=== PATIENT | female | born 1960 | race Caucasian/White ===

== ENCOUNTER → 2018-03-17 | Outpatient (CLI) | payer BC ==
--- NOTE | 2018-03-17 20:55 | CONS ---
CONSULTATION Dr. Cummins is the primary care physician. This is a 57-year-old female patient. The daughter in law of Dr. Kline who is coming in for sleep apnea evaluation. The patient was diagnosed having obstructive sleep apnea through a Sleep Center in [place] and since she moved she has not established herself with any sleep doctor and for that reason, she presented to me. The original polysomnogram will be faxed to me at a later stage. The patient reports that she is benefitting from the CPAP therapy. I checked her CPAP machine and this is set at a pressure of 8 cm of water. This is a Resmet AutoSet unit and she is using an AirFit P 10 extra small nose pillow. She has at times problems utilizing the nasal pillows knowing that the patient has nasal septal deviation. She has been suffering from chronic sinus allergies and she is currently using Flonase. She is also contemplating on using a full-face mask. Otherwise she is not snoring while on CPAP unit. She is benefitting from the treatment. Her sleep quality is improved and she is waking up refreshed and alert during the day. [place] score is down to 3. Her going to bedtime at 10:30 p.m. and she wakes up at 6:30 am in the morning. No reported insomnia. No sleep paralysis or no cataplexy. No other complaints otherwise. PAST MEDICAL HISTORY: 1. Obstructive sleep apnea. 2. Deviated nasal septum. 3. Allergic rhinitis. 4. Acid reflux. 5. Osteoporosis. PAST SURGICAL HISTORY: Past surgical history is negative. DRUG ALLERGIES: Not known. OUTPATIENT MEDICATION LIST: Includes calcium with vitamin D 1 tablet twice a day. Vitamin and biotin, copper, omeprazole 20 daily, Flonase nasal spray. SOCIAL HISTORY: The patient is a nonsmoker. No history of alcohol. No history of drugs. FAMILY HISTORY: Negative for sleep apnea. REVIEW OF SYSTEMS: 12-point review of system was done. Positive findings are mentioned above in the history of present illness. PHYSICAL EXAMINATION: BP is 144/91, pulse 71, respirations 16, temperature 98.1, saturation 99% on room air. Weight is 146, height is 5 feet 5 inches, neck is 12 3/4 of an inch. [place] score is 3. BMI 23.9, BP is 144/91 on the left upper extremity and 155/101 on the right upper extremity. General appearance is calm, comfortable. Head is atraumatic, normocephalic. NECK: Supple. There is no JVD. No goiter or neck masses. LUNGS: Clear to auscultation. HEART: Sounds are regular. Normal S1, S2. No S3. No murmurs. ABDOMEN: Soft, nontender. No organomegaly. EXTREMITIES: No edema. No cyanosis or clubbing. IMPRESSION: 1. Obstructive sleep apnea currently on CPAP pressure of 8 cm of water. Utilizing AirFit P10 extra-small nose pillow. 2. Hypersomnia improved. 3. Acid reflux. 4. Osteoporosis. 5. Deviated nasal septum, along with history of allergic rhinitis and seasonal hay fever. PLAN: I checked the compliance data and the patient's numbers look great. The patient has been utilizing the CPAP on an average of 5.3 hours of CPAP every night. Her AHI while on treatment is down to 0.6 and her leak factor is 11 L/minute. Her CPAP use for more than 4 hours is 23/30. I recommend the following changes: I recommend changing her to an APAP with a minimum pressure of 4, maximum pressure of 8 and this will allow the patient to utilize total pressure if needed. I will add an EPR of 3. I dropped the down to 3 and dropped the temperature of the tubing down to 72 degrees Fahrenheit. We will continue Flonase and do it twice a day and use antihistamines of choice regarding her nasal congestion and sinus drainage. I do not think there is need for a full-face mask for now. We will continue with nasal pillow and we will revaluate this patient in a year's time or earlier if needed. MMODL / IJN: [id number] /
== END | disposition home or self-care (01) ==
LOC: SLEEP 15:25
PROVIDERS: ATTEND Internal Medicine Critical Care Medicine
DX: G47.33 Obstructive sleep apnea (adult) (pediatric) (principal); K21.9 Gastro-esophageal reflux disease without esophagitis; M81.0 Age-related osteoporosis without current pathological fracture; J34.2 Deviated nasal septum; J30.9 Allergic rhinitis, unspecified; R50.9 Fever, unspecified; Z99.89 Dependence on other enabling machines and devices; Z79.899 Other long term (current) drug therapy
CPT/HCPCS: 99211

== ENCOUNTER → 2018-04-15 | Outpatient (CLI) | payer BC ==
--- NOTE | 2018-04-15 16:17 | BD ---
EXAMINATION TYPE: Axial Bone Density DATE OF EXAM: 04/15/2018 COMPARISON: NONE, history of possible study in [place] CLINICAL HISTORY: Osteoporosis Height: 66 Weight: 143.7 FRAX RISK QUESTIONS: Alcohol (3 or more units per day): no Family History (Parent hip fracture): yes Glucocorticoids (More than 3mos): no (Ex: prednisone, prednisolone, methylprednisolone, dexamethasone, and hydrocortisone). History of Fracture in Adulthood: yes Secondary Osteoporosis: 1. Type 1 Diabetes: no 2. Hyperthyroidism: no 3. Menopause before 45: no 4. Malnutrition: no 5. Chronic liver disease: no Rheumatoid Arthritis: no Current Tobacco Use: no RISK FACTORS HISTORY OF: History of Wrist Fracture: yes right When: as a child Family History of Osteoporosis: no Active: yes Diet low in dairy products/other sources of calcium: no Postmenopausal woman: age 49 Lost more than 2 inches in height since high school: no MEDICATIONS: nasal spray, omeprazole, blood pressure med Additional History: EXAM MEASUREMENTS: Bone mineral densitometry was performed using the Tripvisto System. Bone mineral density as measured about the Lumbar spine is: ----- L1-L4(G/cm2): 0.771 T Score Values are as follows: ----- L2: -3.5 ----- L3: -3.6 ----- L4: -3.5 ----- L1-L4: -3.4 Bone mineral density : baseline Bone mineral density about the R hip (g/cm2): 0.850 Bone mineral density about the L hip (g/cm2): 0.841 T Score values are as follows: -----R Neck: -1.4 -----L Neck: -1.4 -----R Total: -1.4 -----L Total: -1.7 Bone mineral density : baseline IMPRESSION: Osteoporosis (T Score less than -2.5). There is increased fracture risk and therapy is usually indicated based on age. Re-Screen 1-2 years. NOTE: T-SCORE=SD OF THE YOUNG ADULT MEAN.
--- NOTE | 2018-04-29 14:13 | MM ---
Reason for exam: screening (asymptomatic). Last mammogram was performed 1 year ago. History: Patient is postmenopausal, history of other cancer, and had first child at age 31. Physical Findings: A clinical breast exam by your physician is recommended on an annual basis and results should be correlated with mammographic findings. MG Screening Mammo w CAD Bilateral CC and MLO view(s) were taken. Prior study comparison: April 14, 2017, mammogram, performed at [place], [place]. August 14, 2015, mammogram, performed at [place], [place]. The breast tissue is heterogeneously dense. This may lower the sensitivity of mammography. There is no discrete abnormality. ASSESSMENT: Negative, BI-RAD 1 RECOMMENDATION: Routine screening mammogram of both breasts in 1 year.
== END | disposition home or self-care (01) ==
LOC: RADMAMWWP 07:36
PROVIDERS: ATTEND Internal Medicine
DX: Z12.31 Encounter for screening mammogram for malignant neoplasm of breast (principal); M81.0 Age-related osteoporosis without current pathological fracture
CPT/HCPCS: 77067; 77080

== ENCOUNTER → 2019-04-13 | Outpatient (CLI) | payer BC ==
--- NOTE | 2019-04-13 19:56 | PN ---
PROGRESS NOTE This is a 58-year-old female patient coming in for an annual check up regarding obstructive sleep apnea. The patient's original sleep study was done in the sleep center in [place]. Her last evaluation was done in February of 2018 and over the past 1 year the patient has been doing extremely well. No significant weight gain or weight loss. Weight is 141, which is a few pounds less. She is on hydrochlorothiazide for tighter blood pressure control. On today's evaluation, I checked her CPAP unit. Her CPAP is set at an APAP mode pressure 4, maximum pressure of 8. She has been averaging around 5.1 hours of CPAP use per night. CPAP use for more than 4 hours is 27/30 and AHI is down to 2.4. She is doing well. No specific complaints. She is using AirFit P10 nose pillows and she is interested in changing her medications to another type of mask. I suggested a DreamWear under the nose. She continues to have issues with nasal septal deviation. She is nose breathing. No sinus infections. Nose plugging. No drainage. No headaches. No other complaints otherwise. She is fully alert and awake during the day and she is not falling asleep while driving. Nor while performing day-to-day activities. REVIEW OF SYSTEMS: 12 point review of system was done. The patient has septal deviation, and she is able to breathe through her nose without any major difficulties. No sinus infections. No headaches. No postnasal drainage. No allergic rhinitis. No sore throat, hoarseness, cough, sputum production, chest tightness, wheezing, palpitation, no heartburn, nausea, vomiting, diarrhea or abdominal pain, dysuria, hematuria, frequency, urgency, falls, altered mentation, headache or any other anxiety or depression or any other issues with the skin or wounds. She has occasional acid reflux which is well treated. She has also osteoporosis. PHYSICAL EXAMINATION: BP is 160/94, pulse 92, respirations 14. Temperature 98.3. Saturation 98% on room air. Height is 5 feet, 5 inches, weight is 141, Hay[place] score is a 3, BMI 23.1. General appearance: Calm, comfortable. Head is atraumatic, normocephalic. NECK: Supple. No JVD. No goiter or neck masses. The patient has deviated nasal septum to the right. LUNGS: Clear to auscultation. HEART: Heart sounds are regular rate and rhythm. Normal S1, S2. No S3. No S4, no murmurs. ABDOMEN: Soft, nontender. EXTREMITIES: No edema. No cyanosis or clubbing. NEUROLOGIC: Alert and oriented x3. No focal neurological deficits. PSYCHIATRIC: Negative for anxiety or depression. IMPRESSION: 1. Obstructive sleep apnea currently on CPAP with an APAP mode, minimum pressure of 4, maximum pressure of 8 and the patient is extremely compliant and has demonstrated good clinical response. 2. Hypersomnia, improved, Hay[place] score is down to 3. 3. Deviated nasal septum to the right. 4. Acid reflux. 5. Osteoporosis. 6. Hypertension, currently on hydrochlorothiazide. PLAN: 1. I offered the patient DreamWear under the nose. 2. Continue APAP as the pressure setting is quite successful at this point in time. 3. Encourage weight loss. 4. Implement good sleep hygiene measures. 5. See me back in a year's time, earlier if needed. SUSSYL / IJN: [id number] /
== END | disposition home or self-care (01) ==
LOC: SLEEP 15:57
PROVIDERS: ATTEND Internal Medicine Critical Care Medicine
DX: G47.33 Obstructive sleep apnea (adult) (pediatric) (principal); J34.2 Deviated nasal septum; K21.9 Gastro-esophageal reflux disease without esophagitis; M81.0 Age-related osteoporosis without current pathological fracture; I10 Essential (primary) hypertension; Z99.89 Dependence on other enabling machines and devices; Z79.899 Other long term (current) drug therapy

== ENCOUNTER → 2019-05-04 | Outpatient (CLI) | payer BC ==
--- NOTE | 2019-05-05 14:23 | MM ---
Reason for exam: screening (asymptomatic). Last mammogram was performed 1 year and 1 month ago. History: Patient is postmenopausal, history of other cancer, and had first child at age 31. Physical Findings: A clinical breast exam by your physician is recommended on an annual basis and results should be correlated with mammographic findings. MG Screening Mammo w CAD Bilateral CC and MLO view(s) were taken. Prior study comparison: April 15, 2018, bilateral MG screening mammo w CAD. April 14, 2017, mammogram, performed at [place], [place]. The breast tissue is heterogeneously dense. This may lower the sensitivity of mammography. No suspicious abnormality. No significant changes when compared with prior studies. ASSESSMENT: Negative, BI-RAD 1 RECOMMENDATION: Routine screening mammogram of both breasts in 1 year.
== END | disposition home or self-care (01) ==
LOC: RADMAMWWP 07:18
PROVIDERS: ATTEND Internal Medicine
DX: Z12.31 Encounter for screening mammogram for malignant neoplasm of breast (principal)
CPT/HCPCS: 77067

== ENCOUNTER → 2019-05-07 | Outpatient (CLI) | payer BC ==
[~2019-05-07] MED LIST: SODIUM CHLORIDE 0.9% 500 ML 500 ML in EMPTY BAG 1 BAG IV PRN; ZOLEDRONIC ACID 5 MG in SODIUM CHLORIDE 0.9% 100 ML IV NR
[2019-05-07 10:25] VITALS: BP 170/94; PULSE 58; RESP 16; TEMP 97.8
== END ==
LOC: PROCWHC3 09:30
PROVIDERS: ATTEND Internal Medicine
DX: M81.0 Age-related osteoporosis without current pathological fracture (principal)
CPT/HCPCS: 96365; J3489

== ENCOUNTER 2019-12-27 15:12 | Emergency (ER) | payer BC ==
[2019-12-27] MEDS ORDERED: SODIUM CHLORIDE 0.9% 1,000 ML IV STA (15:20)
--- NOTE | 2019-12-27 15:38 | ED ---
General Adult HPI - General Chief complaint: Chest Pain Stated complaint: Shortness of Breath Time Seen by Provider: 12/27/19 15:20 Source: patient Mode of arrival: ambulatory Limitations: no limitations - History of Present Illness Initial comments: Dictation was produced using [employer] dictation software. please excuse any grammatical, word or spelling errors. This patient was cared for during a federal and state declared state of emergency secondary to Covid 19 Chief Complaint: 59-year-old female past medical history of GERD, hypertension presents with concern for Covid 19. History of Present Illness:-year-old female she is here today because she is concerned of Covid 19. Patient was seen at urgent care where she was redirected and sent to the emergency department. Patient states she's been having headache and chest pain for the last 3 days. Vision is really worried because she has a daughter who is and [place]. Patient has any overt exposure to sick individuals. She has no known contact with anyone with known Covid 19 infection. Patient states she does have some chest pain that sharp to the anterior chest worse with deep inspiration. States that she does have some coughing that is dry. Patient denies any history of coronary artery disease. She denies any history of lung disease. The ROS documented in this emergency department record has been reviewed and confirmed by me. Those systems with pertinent positive or negative responses have been documented in the HPI. All other systems are other negative and/or noncontributory. PHYSICAL EXAM: General Impression: Alert and oriented x3, not in acute distress HEENT: Normocephalic atraumatic, extra-ocular movements intact, pupils equal and reactive to light bilaterally, mucous membranes moist. Cardiovascular: Heart regular rate and rhythm, S1&S2 audible, no murmurs, rubs or gallops Chest: We will complete full sentences, no retractions, no tachypnea or respiratory distress Abdomen: Bowel sounds present, abdomen soft, non-tender, non-distended, no organomegaly Musculoskeletal: Pulses present and equal in all extremities, no peripheral edema Motor: no focal deficits noted Neurological: CN II-XII grossly intact, no focal motor or sensory deficits noted Skin: Intact with no visualized rashes Psych: Normal affect and mood ED course: 59-year-old female presents with concerns of Covid 19. Vital signs upon arrival are within acceptable limits. Patient is afebrile. She is not hypoxic. She is not requiring any supplemental oxygen. Patient's well- appearing. Patient's chest pain is atypical.Laboratory evaluation obtained. CB C unremarkable. Sodium is mild hyper bone trimming of 1:30 with potassium 3.2. Rest metabolic panel is unremarkable. Troponin is negative. C-reactive protein is negative. Patient's symptoms of headache likely secondary to mild hyponatremia. Patient told to add some sodium chloride to her food and to hydrate. She is advised to follow-up with primary care physician upon discharge. Patient clinically stable. She was tested for Covid 19 and told to follow-up with her results. Patient instructed to quarantine for 14 days. She is given outpatient resources for coronavirus. EKG interpretation: Ventricular rate 60, normal sinus rhythm, AK interval 144, QRS 86, QTC 423. No AK prolongation, no QTC prolongation, no ST or T-wave changes noted. Overall, this EKG is unremarkable - Related Data Home Medications Medication Instructions Recorded Confirmed Calcium Citrate/Vitamin D3 2 tab PO DAILY 05/07/19 05/07/19 [Calcium Cit 315-Vit D3 250mg Tab] Diclofenac Sodium Gel [Voltaren 1 appful TOPICAL DIRECTED 05/07/19 05/07/19 Gel] Fluticasone Nasal [place] [Flonase 50 mcg NASAL DAILY 05/07/19 05/07/19 Nasal [place]] Hydrochlorothiazide 50 mg PO DAILY 05/07/19 05/07/19 Multivit No.40/Iron/Folat1/Dha 2 tab PO DAILY 05/07/19 05/07/19 [Prenate Essential Softgel] Omeprazole 20 mg PO DAILY 05/07/19 05/07/19 Turmeric Root Extract [Turmeric] 500 mg PO DAILY 05/07/19 05/07/19 Allergies Allergy/AdvReac Type Severity Reaction Status Date / Time No Known Allergies Allergy Verified 12/27/19 15:18 Review of Systems ROS Statement: Those systems with pertinent positive or pertinent negative responses have been documented in the HPI. ROS Other: All systems not noted in ROS Statement are negative. Past Medical History Past Medical History: GERD/Reflux, Hypertension, Osteoarthritis (OA), Sleep Apnea/CPAP/BIPAP Additional Past Medical History / Comment(s): OSEOPOROSIS. History of Any Multi-Drug Resistant Organisms: None Reported Additional Past Surgical History / Comment(s): VEIN STRIPPING FOR VARICOSE VEINS. Past Anesthesia/Blood Transfusion Reactions: No Reported Reaction Past Psychological History: No Psychological Hx Reported Smoking Status: Never smoker Past Alcohol Use History: Occasional Past Drug Use History: None Reported General Exam Limitations: no limitations Course Vital Signs 12/27/19 15:15 Temperature 97.5 F L Pulse Rate 68 Respiratory 20 Rate Blood Pressure 174/103 O2 Sat by Pulse 99 Oximetry Medical Decision Making - Lab Data Result diagrams: 12/27/19 15:35 12/27/19 15:35 Lab Results 12/27/19 12/27/19 12/27/19 Range/Units 15:35 15:35 15:35 WBC 4.3 (3.8-10.6) k/uL RBC 4.79 (3.80-5.40) m/uL Hgb 14.7 (11.4-16.0) gm/dL Hct 43.4 (34.0-46.0) % MCV 90.6 (80.0-100.0) fL MCH 30.8 (25.0-35.0) pg MCHC 34.0 (31.0-37.0) g/dL RDW 12.1 (11.5-15.5) % Plt Count 357 (150-450) k/uL Neutrophils % 64 % Lymphocytes % 25 % Monocytes % 6 % Eosinophils % 2 % Basophils % 0 % Neutrophils # 2.8 (1.3-7.7) k/uL Lymphocytes # 1.1 (1.0-4.8) k/uL Monocytes # 0.3 (0-1.0) k/uL Eosinophils # 0.1 (0-0.7) k/uL Basophils # 0.0 (0-0.2) k/uL Sodium 130 L (137-145) mmol/L Potassium 3.2 L (3.5-5.1) mmol/L Chloride 95 L (98-107) mmol/L Carbon Dioxide 28 (22-30) mmol/L Anion Gap 7 mmol/L BUN 14 (7-17) mg/dL Creatinine 0.58 (0.52-1.04) mg/dL Est GFR (CKD-EPI)AfAm >90 (>60 ml/min/1.73 sqM) Est GFR (CKD-EPI)NonAf >90 (>60 ml/min/1.73 sqM) Glucose 125 H (74-99) mg/dL Calcium 10.4 H (8.4-10.2) mg/dL Magnesium 1.9 (1.6-2.3) mg/dL Total Bilirubin 0.3 (0.2-1.3) mg/dL AST 25 (14-36) U/L ALT 14 (4-34) U/L Alkaline Phosphatase 68 (38-126) U/L Troponin I <0.012 (0.000-0.034) ng/mL C-Reactive Protein <5.0 (<10.0) mg/L Total Protein 7.1 (6.3-8.2) g/dL Albumin 4.2 (3.5-5.0) g/dL Disposition Clinical Impression: URI (upper respiratory infection) Disposition: HOME SELF-CARE Condition: Good Instructions (If sedation given, give patient instructions): Chest Pain (ED), Upper Respiratory Infection (ED) Additional Instructions: Today you were evaluated for symptoms consistent with upper respiratory infection. There is concern that perhaps your symptomatology may represent Covid 19. Your are stable for discharge, however it is instructed to to seek immediate medical attention especially if you develop worsening symptoms especially respiratory distress. In the meantime please remain in quarantine for 14 days. For any other questions please contact Madhuri for here in emergency department or [facility] at [phone] Please call Madhuri for him for follow-up of Covid 19 results Is patient prescribed a controlled substance at d/c from ED?: No Referrals: Carter Cummins MD [Primary Care Provider] - 1-2 days Time of Disposition: 16:41
[2019-12-27 15:55] LABS: Basophils % (A) 0 %; Eosinophils # (A) 0.1 k/uL (0-0.7); Eosinophils % (A) 2 %; HCT 43.4 % (34.0-46.0); HGB 14.7 gm/dL (11.4-16.0); Lymphocytes # (A) 1.1 k/uL (1.0-4.8); Lymphocytes % (A) 25 %; MCH 30.8 pg (25.0-35.0); MCV 90.6 fL (80.0-100.0); Mean Platelet Volume 6.9; Monocytes # (A) 0.3 k/uL (0-1.0); Monocytes % (A) 6 %; Neutrophils # (A) 2.8 k/uL (1.3-7.7); Neutrophils % (A) 64 %; Platelet Count 357 k/uL (150-450); RBC 4.79 m/uL (3.80-5.40); RDW 12.1 % (11.5-15.5); WBC 4.3 k/uL (3.8-10.6)
--- NOTE | 2019-12-27 15:55 | XR ---
EXAMINATION TYPE: XR chest 1V portable DATE OF EXAM: 12/27/2019 Comparison: None Clinical History: 59-year-old female chest pain Findings: Dextroconvex scoliosis. Heart normal size. Aorta and pulmonary vasculature within normal limits. No c onsolidation or pleural effusion. Mild hyperinflation. Impression: Mild hyperinflation may relate to depth of inspiration or underlying emphysema. Clinically correlate . Dextroconvex scoliosis. Otherwise, no acute process seen.
[2019-12-27 16:04] LABS: ALT 14 U/L (4-34); AST 25 U/L (14-36); African American GFR (CKD) >90 (>60 ml/min/1.73 sqM); Albumin 4.2 g/dL (3.5-5.0); Alkaline Phosphatase 68 U/L (38-126); Anion Gap 7 mmol/L; Blood Urea Nitrogen 14 mg/dL (7-17); C Reactive Protein <5.0 mg/L (<10.0); Calcium 10.4 mg/dL (8.4-10.2); Carbon Dioxide 28 mmol/L (22-30); Chloride 95 mmol/L (98-107); Glucose 125 mg/dL (74-99); Magnesium 1.9 mg/dL (1.6-2.3); Non-African American GFR(CKD) >90 (>60 ml/min/1.73 sqM); Potassium 3.2 mmol/L (3.5-5.1); Sodium 130 mmol/L (137-145); Total Bilirubin 0.3 mg/dL (0.2-1.3); Total Protein 7.1 g/dL (6.3-8.2)
[2019-12-27] MEDS ORDERED: POTASSIUM CHLORIDE ER 20 MEQ TAB.ER PO STA (16:33)
[2019-12-27 17:12] VITALS: BP 147/89; PULSE 72; RESP 18; TEMP 98
== END 2019-12-27 17:09 | disposition home or self-care (01) ==
LOC: EC 15:12
DX: J06.9 Acute upper respiratory infection, unspecified (principal); I10 Essential (primary) hypertension; G47.30 Sleep apnea, unspecified; Z20.828 Contact with and (suspected) exposure to other viral communicable diseases; Z53.8 Procedure and treatment not carried out for other reasons; Z79.51 Long term (current) use of inhaled steroids; Z79.899 Other long term (current) drug therapy; Z99.89 Dependence on other enabling machines and devices
CPT/HCPCS: 36415; 71045; 80053; 83735; 84484; 85025; 86140; 87635; 93005; 99285

== ENCOUNTER → 2020-06-01 | Outpatient (CLI) | payer BC ==
[2020-06-01 13:40] VITALS: BP 130/89; PULSE 88; RESP 16; TEMP 98.4
== END | disposition home or self-care (01) ==
LOC: PROCWHC3 13:26
PROVIDERS: ATTEND Internal Medicine
DX: M81.0 Age-related osteoporosis without current pathological fracture (principal)
CPT/HCPCS: 96365; J3489

== ENCOUNTER → 2020-07-28 | Outpatient (CLI) | payer BC ==
--- NOTE | 2020-07-28 15:48 | BD ---
EXAMINATION TYPE: Axial Bone Density DATE OF EXAM: 07/28/2020 COMPARISON: NONE CLINICAL HISTORY: Height: 65 Weight: 144.7 FRAX RISK QUESTIONS: Alcohol (3 or more units per day): no Family History (Parent hip fracture): yes Glucocorticoids (More than 3mos): no (Ex: prednisone, prednisolone, methylprednisolone, dexamethasone, and hydrocortisone). History of Fracture in Adulthood: yes Secondary Osteoporosis: 1. Type 1 Diabetes: no 2. Hyperthyroidism: no 3. Menopause before 45: no 4. Malnutrition: no 5. Chronic liver disease: no Rheumatoid Arthritis: no Current Tobacco Use: no RISK FACTORS HISTORY OF: Family History of Osteoporosis: no Active: yes Diet low in dairy products/other sources of calcium: no Postmenopausal woman: age 49 Lost more than 2 inches in height since high school: no MEDICATIONS: lisinopril, omeprazole, hydrochlorazide Osteoporosis Medications: reclast How Lon years Additional History: EXAM MEASUREMENTS: Bone mineral densitometry was performed using the IVDesk System. Bone mineral density as measured about the Lumbar spine is: ----- L1-L4(G/cm2): 0.828 T Score Values are as follows: ----- L2: -3.0 ----- L3: -3.2 ----- L4: -3.2 ----- L1-L4: -2.9 Bone mineral density has: increased 6.2 % since study of: 04.15.2018 Bone mineral density about the R hip (g/cm2): 0.890 Bone mineral density about the L hip (g/cm2): 0.889 T Score values are as follows: -----R Neck: -1.1 -----L Neck: -1.1 -----R Total: -1.1 -----L Total: -1.1 Bone mineral density has: increased 7.3 % since study of: 04.15.2018 IMPRESSION: Osteoporosis (T Score less than -2.5). There is increased fracture risk and therapy is usually indicated based on age. Re-Screen 1-2 years. NOTE: T-SCORE=SD OF THE YOUNG ADULT MEAN.
== END | disposition home or self-care (01) ==
LOC: RADBDWWP 07:16
PROVIDERS: ATTEND Internal Medicine
DX: M81.0 Age-related osteoporosis without current pathological fracture (principal)
CPT/HCPCS: 77080

== ENCOUNTER → 2020-10-20 | Outpatient (CLI) | payer BC ==
--- NOTE | 2020-10-20 08:57 | CT ---
EXAMINATION TYPE: CT soft tissue neck w con DATE OF EXAM: 10/20/2020 HISTORY: pain with swallowing lt side of neck x 3 months/hoarse voice COMPARISON: NONE CT DLP: 291 mGycm. Automated Exposure Control for Dose Reduction was Utilized. TECHNIQUE: CT scan of the neck is performed with IV Contrast, patient injected with 100 mL of Isovue 300, axial images are obtained, coronal and sagittal reformatted images are reviewed. FINDINGS: Airway: No gross abnormality seen. Parotid/submandibular glands: No gross abnormality seen. Carotid/Vascular Structures: No significant abnormality. Osseous Structures: Grade 1 anterolisthesis C3 on C4 and grade 1 retrolisthesis C4 on C5. Moderate to severe disc space narrowing C4-C5 level. Underlying levoconvex scoliosis centered in the upper thora cic spine Other: Nasal septum is deviated to left of midline. No suspicious greater than 1 cm neck adenopathy. Paranasal sinuses are clear. Parapharyngeal fat spac es are maintained bilaterally. IMPRESSION: No suspicious mass or adenopathy.
== END | disposition home or self-care (01) ==
LOC: RADCTMAIN 07:21
PROVIDERS: ATTEND Otolaryngology
DX: J02.9 Acute pharyngitis, unspecified (principal)
CPT/HCPCS: 70491; Q9967

== ENCOUNTER → 2021-02-01 | Outpatient (CLI) | payer BC ==
--- NOTE | 2021-02-02 15:04 | MM ---
Reason for exam: screening (asymptomatic). Last mammogram was performed 1 year and 9 months ago. History: Patient is postmenopausal, history of other cancer, and had first child at age 31. Physical Findings: A clinical breast exam by your physician is recommended on an annual basis and results should be correlated with mammographic findings. MG Screening Mammo w CAD Bilateral CC and MLO view(s) were taken. Prior study comparison: May 04, 2019, bilateral MG screening mammo w CAD. April 15, 2018, bilateral MG screening mammo w CAD. There are scattered fibroglandular densities. No significant changes when compared with prior studies. ASSESSMENT: Negative, BI-RAD 1 RECOMMENDATION: Routine screening mammogram of both breasts in 1 year.
== END | disposition home or self-care (01) ==
LOC: RADMAMWWP 16:55
PROVIDERS: ATTEND Internal Medicine
DX: Z12.31 Encounter for screening mammogram for malignant neoplasm of breast (principal); Z78.0 Asymptomatic menopausal state
CPT/HCPCS: 77067

== ENCOUNTER → 2021-02-13 | Outpatient (CLI) | payer BC ==
--- NOTE | 2021-02-13 13:44 | MR ---
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 Neck, mid back, and low back pain. Family hist ory of chiari malformation. TECHNIQUE: Multiplanar, multisequence images of the brain and brainstem is performed without and with IV contras t, utilizing 6.5 mL intravenous Gadavist . FINDINGS: Diffusion weighted images demonstrate no evidence of a recent infarct or other diffusion ab normality. There is no extra-axial fluid collection. There are some scattered hyperintensities with in the deep white matter on inversion recovery T2-weighted sequences, approximately 3-5 lesions, larg est in the right frontal lobe measures approximately 4 mm. The ventricular system and cisternal space s are normal in size and appearance. The brain volume is age appropriate. Midline structures demonstrate minimal inferior cerebellar tonsillar ectopia. The craniocervical kamilah ction appears within normal limits. Post contrast images demonstrate no abnormal enhancement. The du ral venous sinuses appear patent. The visualized sinuses are markable for minimal mucosal disease in the ethmoid air cells, maxillary sinus and the globes are intact. 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
== END | disposition home or self-care (01) ==
LOC: RADMRIMAIN 11:36
PROVIDERS: ATTEND Orthopaedic Surgery Orthopaedic Surgery of the Spine
DX: Q04.8 Other specified congenital malformations of brain (principal)
CPT/HCPCS: 70553; A9585

== ENCOUNTER → 2022-02-21 | Outpatient (CLI) | payer BC, OTHER ==
--- NOTE | 2022-02-21 14:01 | MM ---
Reason for Exam: Screening (asymptomatic). Last mammogram was performed 1 year(s) and 1 month(s) ago. Patient History: Menarche at age 11. First Full-Term at age 31. Late child-bearing (after 30). Postmenopausal. Other cancer. Risk Values: Britta 5 year model risk: 2.1%. NCI Lifetime model risk: 9.4%. Prior Study Comparison: 04/15/2018 Bilateral Screening Mammogram, [facility]. 05/04/2019 Bilateral Screening Mammogram, [facility]. 02/01/2021 Bilateral Screening Mammogram, [facility]. Tissue Density: There are scattered fibroglandular densities. Findings: Analyzed By CAD. There is no suspicious group of microcalcifications or new suspicious mass in either breast. Overall Assessment: Negative, BI-RAD 1 Management: Screening Mammogram of both breasts in 1 year. A clinical breast exam by your physician is recommended on an annual basis and results should be correlated with mammographic findings. Electronically signed and approved by: Hector Michele M.D.
== END | disposition home or self-care (01) ==
LOC: RADMAMWWP 10:55
PROVIDERS: ATTEND Internal Medicine
DX: Z12.31 Encounter for screening mammogram for malignant neoplasm of breast (principal); Z78.0 Asymptomatic menopausal state
CPT/HCPCS: 77067

== ENCOUNTER → 2022-08-13 | Outpatient (CLI) | payer OTHER ==
--- NOTE | 2022-08-13 10:39 | BD ---
EXAMINATION TYPE: Axial Bone Density DATE OF EXAM: 08/13/2022 COMPARISON: 07/28/2020 CLINICAL HISTORY: 61 years year old Female. ICD-10 CODE: M81.0 age related osteoporosis Height: 5FT 5INCHES Weight: 144.2 FRAX RISK QUESTIONS: Alcohol (3 or more units per day): NO Family History (Parent hip fracture): YES, FATHER Glucocorticoids (More than 3mos): NO (Ex: prednisone, prednisolone, methylprednisolone, dexamethasone, and hydrocortisone). History of Fracture in Adulthood: YES, RIGHT KNEE Secondary Osteoporosis: 1. Type 1 Diabetes: NO 2. Hyperthyroidism: NO 3. Menopause before 45: NO 4. Malnutrition: NO 5. Chronic liver disease: NO Rheumatoid Arthritis: NO Current Tobacco Use: NO RISK FACTORS HISTORY OF: Hip Fracture (Right/Left): NO Spine Fracture: NO History of Wrist Fracture: NO Surgery to Spine/Hip(right/left)/Wrist (right/left): NO Family History of Osteoporosis: NO Active: YES Diet low in dairy products/other sources of calcium: NO Postmenopausal woman: YES Take estrogen and/or progesterone medications: NO Lost more than 2 inches in height since high school: NO Frequent falls: NO Poor Health: GOOD Hyperparathyroidism: NO Adrenal Insufficiency: NO MEDICATIONS: Prednisone or other steroids: NO Thyroid Medications: NO Osteoporosis Medications: YES, RECLAST INFUSION, 1PER YEAR (PATIENT HAS HAD 2, SHE BELIEVES THAT BOTH WERE POSSIBLY PRIOR TO HER BONE DENSITY 07/28/2020) Additional Medications: VITAMIN D, VITAMIN C, LISINOPRIL, OMEPRAZOLE, LIPITOR, TURMERIC, COLLAGEN EXAM MEASUREMENTS: Bone mineral densitometry was performed using the [employer] System. Bone mineral density as measured about the Lumbar spine is: ----- L1-L4(G/cm2): 0.847 T Score Values are as follows: ----- L1: -2.8 ----- L2: -2.8 ----- L3: -2.8 ----- L4: -2.8 ----- L1-L4: -2.8 Bone mineral density has: INCREASED 5.0% since study of: 07/28/2020 Bone mineral density about the R hip (g/cm2): 0.863 Bone mineral density about the L hip (g/cm2): 0.907 T Score values are as follows: -----R Neck: -0.9 -----L Neck: -1.3 -----R Total: -1.1 -----L Total: -1.0 Bone mineral density has: INCREASED 0.2% since study of: 07/28/2020 FRAX%s: The graph provided illustrates a 12.2% chance for a major osteoporotic fx and a 1.0% chance f or the hips probability for fx in 10 years time. IMPRESSION: Osteoporosis (T Score less than -2.5). There is increased fracture risk and therapy is usually indicated based on age. Re-Screen 1-2 years. NOTE: T-SCORE=SD OF THE YOUNG ADULT MEAN.
== END | disposition home or self-care (01) ==
LOC: RADBDWWP 09:12
PROVIDERS: ATTEND Internal Medicine
DX: M81.0 Age-related osteoporosis without current pathological fracture (principal)
CPT/HCPCS: 77080

== ENCOUNTER 2022-09-17 16:03 | Emergency (ER) | payer OTHER ==
[2022-09-17 16:13] VITALS: TEMP 97.8
--- NOTE | 2022-09-17 16:39 | ED ---
General Adult HPI <Jose Maria Collado - Last Filed: 09/17/22 18:13> - General Source: patient, EMS, RN notes reviewed Mode of arrival: EMS Limitations: physical limitation <Audrey Soares - Last Filed: 09/17/22 23:51> - General Chief complaint: Fall Stated complaint: fall, ankle injury Time Seen by Provider: 09/17/22 16:11 - History of Present Illness Initial comments: 62 year old caucasaian with no significant PMH presents to the emergency department with a chief complaint of L ankle pain. She reports she was [place] when her dog ran into her and she spun around and fell on her L ankle. She reports hearing a loud "pop." She was given 100mg of fentanyl en route via EMS. She denies numbness or tingling. (Audrey Soares) - Related Data Home Medications Medication Instructions Recorded Confirmed Fluticasone Nasal [place] [Flonase 1 spr EA NOSTRIL DAILY PRN 05/07/19 09/17/22 Nasal [place]] Turmeric Root Extract [Turmeric] 1,000 mg PO DAILY 05/07/19 09/17/22 Ascorbic Acid [Vitamin C] 1,000 mg PO DAILY 09/17/22 09/17/22 Atorvastatin Calcium [Lipitor] 40 mg PO DAILY 09/17/22 09/17/22 Biotin 5 mg PO DAILY 09/17/22 09/17/22 Chlorthalidone 50 mg PO DAILY 09/17/22 09/17/22 Cranberry W/ Vitamin C 1 tab PO HS 09/17/22 09/17/22 Multivit-Min/Folic Acid/Biotin 133.3 mcg PO DAILY 09/17/22 09/17/22 [Hair, Skin and Nails Softgel] Omeprazole 20 mg PO DAILY 09/17/22 09/17/22 Vitamin D3(Unknown) 1 tab PO HS 09/17/22 09/17/22 lisinopriL [Zestril] 5 mg PO DAILY 09/17/22 09/17/22 Allergies Allergy/AdvReac Type Severity Reaction Status Date / Time No Known Allergies Allergy Verified 09/17/22 16:54 Review of Systems ROS Other: All systems not noted in ROS Statement are negative. <Jose Maria Collado - Last Filed: 09/17/22 18:13> ROS Other: All systems not noted in ROS Statement are negative. <Audrey Soares - Last Filed: 09/17/22 23:51> ROS Statement: Those systems with pertinent positive or pertinent negative responses have been documented in the HPI. Past Medical History Past Medical History: GERD/Reflux, Hypertension, Osteoarthritis (OA), Sleep Apnea/CPAP/BIPAP Additional Past Medical History / Comment(s): OSEOPOROSIS. History of Any Multi-Drug Resistant Organisms: None Reported Additional Past Surgical History / Comment(s): VEIN STRIPPING FOR VARICOSE VEINS. Past Anesthesia/Blood Transfusion Reactions: No Reported Reaction Past Psychological History: No Psychological Hx Reported Smoking Status: Never smoker <Audrey Soares - Last Filed: 09/17/22 23:51> General Exam Limitations: physical limitation General appearance: alert, in no apparent distress Head exam: Present: atraumatic, normocephalic, normal inspection Eye exam: Present: normal appearance, PERRL, EOMI. Absent: scleral icterus, conjunctival injection, periorbital swelling ENT exam: Present: normal exam, mucous membranes moist Neck exam: Present: normal inspection. Absent: tenderness, meningismus, lymphadenopathy Respiratory exam: Present: normal lung sounds bilaterally. Absent: respiratory distress, wheezes, rales, rhonchi, stridor Cardiovascular Exam: Present: regular rate, normal rhythm, normal heart sounds. Absent: systolic murmur, diastolic murmur, rubs, gallop, clicks GI/Abdominal exam: Present: soft Extremities exam: Present: normal inspection, full ROM, normal capillary refill. Absent: tenderness, pedal edema, joint swelling, calf tenderness Left Ankle exam: Present: tenderness, swelling (Medial Malleolus ). Absent: normal inspection, full ROM (limited secondary to pain ) Back exam: Present: normal inspection Neurological exam: Present: alert, oriented X3, CN II-XII intact Psychiatric exam: Present: normal affect, normal mood Skin exam: Present: warm, dry, intact, normal color. Absent: rash <Audrey Soares - Last Filed: 09/17/22 23:51> Course <Audrey Soares - Last Filed: 09/17/22 23:51> Vital Signs 09/17/22 09/17/22 09/17/22 16:08 17:25 17:59 Temperature 97.8 F Pulse Rate 69 74 76 Respiratory 18 18 18 Rate Blood Pressure 163/92 130/82 156/86 O2 Sat by Pulse 98 98 100 Oximetry 09/17/22 09/17/22 09/17/22 18:02 18:07 18:12 Temperature Pulse Rate 80 78 75 Respiratory 18 16 18 Rate Blood Pressure 131/83 133/84 130/84 O2 Sat by Pulse 100 100 100 Oximetry 09/17/22 09/17/22 09/17/22 18:27 18:42 18:57 Temperature Pulse Rate 89 87 86 Respiratory 17 18 18 Rate Blood Pressure 138/77 145/89 136/84 O2 Sat by Pulse 97 98 98 Oximetry 09/17/22 09/17/22 09/17/22 19:12 19:27 19:42 Temperature Pulse Rate 87 90 87 Respiratory 17 18 16 Rate Blood Pressure 137/88 135/85 140/95 O2 Sat by Pulse 97 98 98 Oximetry 09/17/22 20:51 Temperature Pulse Rate 96 Respiratory 18 Rate Blood Pressure 159/69 O2 Sat by Pulse 98 Oximetry - Reevaluation(s) Reevaluation #1: 09/17/22 23:47 18:02 assisted with conscious sedation. RespiratoyMia RN, Dr. Collado, ECP and self at bedside. ([facility]) Procedures - Orthopedic Fracture Reduction Fracture #1 Consent Obtained: verbal consent Side: left Fracture Reduction Location: tibia, fibula Analgesia: procedural sedation Technique: direct manipulation Post-Reduction Neuro Exam: intact Post-Reduction Vascular Exam: other (Patient had good capillary refill but no dorsal pedis pulse could be palpated before or after procedure) Splint Applied: Yes Patient Tolerated Procedure: well - Procedural Sedation *Procedural Sedation Start Time: 18:02 *Procedural Sedation Stop Time: 18:32 *Indications: fracture/dislocation reduction *Previous Adverse Reaction to Anesthesia/Sedation?: No * Testing Complete?: No Reason Test Not Complete:: Age > 60 *ASA Class: II *Mallampati Airway Score: 2 *Time of Last PO Intake: 13:00 Preparation: telemetry monitor applied IV Propofol Dose (mgs): 175 Complications: none Interventions: oxygen applied Patient Tolerated Procedure: well <Jose Maria Collado - Last Filed: 09/17/22 18:13> - Orthopedic Splinting/Casting Injury #1 Lower Extremity Injury Location: ankle Lower Extremity Immobilizer: posterior splint, fiberglass cast <Audrey Soares - Last Filed: 09/17/22 23:51> Medical Decision Making <Audrey Soares - Last Filed: 09/17/22 23:51> - Medical Decision Making Was pt. sent in by a medical professional or institution? @ -Self Did you speak to anyone other than the patient for history? @ -Patient Did you review nursing and triage notes? @ -I reviewed the triage notes Were old charts reviewed? @ -NA Differential Diagnosis? @ -L ankle fracture What meds were considered but not given? Why? @ patient was given fentanyl in route with symptomatic relief Did you discuss the management of the patient with other professionals? @ -I discussed the case with Dr. Collado who also evaluated the patient and agrees with the plan of care. Did you reconcile home meds? @ -NA Was smoking cessation discussed for >3mins.? @ Was critical care preformed (if so, how long)? @ -[none] Were there social determinants of health that impacted care today? How? (Homelessness, low income, unemployed, alcoholism, drug addiction, transportation, low edu. Level, literacy, decrease access to med. care, long-term, rehab)? @ -[Homelessness, low income, unemployed, alcoholism, drug addiction, transportation, low edu. Level, literacy, decrease access to med. care, long-term, rehab?] Was there de-escalation of care discussed even if they declined? (Discuss DNR or withdrawal of care, Hospice)? @ -[Discuss DNR or withdrawal of care, Hospice?] What co-morbidities impacted this encounter? (DM, HTN, Smoking, COPD, CAD, Cancer, CVA, Hep., AIDS, mental health diagnosis, sleep apnea, morbid obesity)? @ -[DM, HTN, Smoking, COPD, CAD, Cancer, CVA, Hep., AIDS, mental health diagnosis, sleep apnea, morbid obesity?] Was patient admitted / discharged? @ -[hospital course] Undiagnosed new problem with uncertain prognosis? @ -[none] Drug Therapy requiring intensive monitoring for toxicity (Heparin, Nitro, Insulin, Cardizem)? @ -[none] Were any procedures done? @ -Conscious sedation L ankle reduction Diagnosis/symptom? @ L trimalleolar fracture Acute, or Chronic, or Acute on Chronic? @ -acute Uncomplicated (without systemic symptoms) or Complicated (systemic symptoms)? @ -uncomplicated Side effects of treatment? @ -[none] Exacerbation, Progression, or Severe Exacerbation] @ -[no] Poses a threat to life or bodily function? @ -moderate likelihood (Audrey Soares) Disposition <Jose Maria Collado - Last Filed: 09/17/22 18:13> Is patient prescribed a controlled substance at d/c from ED?: No Time of Disposition: 20:04 <Audrey Soares - Last Filed: 09/17/22 23:51> Clinical Impression: Trimalleolar fracture of ankle, closed Disposition: HOME SELF-CARE Instructions (If sedation given, give patient instructions): Ankle Fracture (ED), Moderate Sedation (ED) Referrals: Tim Rosales MD [Primary Care Provider] - 1-2 days Damion Sanz DO [REFERRING] - 1-2 days Aguilar Cochran MD [STAFF PHYSICIAN] - 1-2 days
--- NOTE | 2022-09-17 16:50 | XR ---
EXAMINATION TYPE: XR ankle limited LT, XR tibia fibula LT DATE OF EXAM: 09/17/2022 4:44 PM INDICATION: Patient age:Female; 62 years old; Reason for study: fall; COMPARISON: None TECHNIQUE: The left ankle is imaged in frontal, lateral and oblique projections. FINDINGS: Comminuted fracture involving the medial malleolus and posterior tibial plafond. Additionally, commin uted fracture of the distal metadiaphysis of the fibula. Calcaneal plantar spurring is present. No pr oximal tibia or fibular fracture. IMPRESSION: Trimalleolar fracture of the distal left ankle.
[2022-09-17] MEDS ORDERED: SODIUM CHLORIDE 0.9% 1,000 ML IV STA (17:12)
[2022-09-17] MEDS ORDERED: NALOXONE 0.4 MG/ML 1 ML VIAL IV STA (17:12)
[2022-09-17] MEDS ORDERED: PROPOFOL 10 MG/ML 20 ML VIAL IV STA (17:12)
[2022-09-17] MEDS ORDERED: ONDANSETRON 4 MG/2 ML VIAL IVP STA (17:12)
[2022-09-17] MEDS ORDERED: PROPOFOL 10 MG/ML 20 ML VIAL IV ONE ×3 (17:55→18:06)
[2022-09-17] MEDS ORDERED: RX INFO: IV CONTRAST WAS GIVEN 1 EACH MISC MISCELLANE PRN (18:12)
--- NOTE | 2022-09-17 19:25 | XR ---
EXAMINATION TYPE: XR ankle limited LT DATE OF EXAM: 09/17/2022 7:01 PM INDICATION: Patient age:Female; 62 years old; Reason for study: post reduction; [facility]. COMPARISON: Same day radiographs TECHNIQUE: The left ankle is imaged in frontal, lateral projections. FINDINGS: Reduction of trimalleolar fracture with splint material in place. There is stable alignment No new fr actures. Calcaneal plantar spurring present . There is soft tissue swelling. IMPRESSION: Stable alignment of trimalleolar fracture
--- NOTE | 2022-09-17 19:41 | CT ---
EXAMINATION TYPE: CT angio lower extremity LT CT DLP: 1310.8 mGycm, Automated exposure control for dose reduction was used. DATE OF EXAM: 09/17/2022 7:08 PM COMPARISON: Radiograph same day. CLINICAL INDICATION:Female, 62 years old with history of trimalleolar fracture, trimalleolar Fx TECHNIQUE: Multiple thin slice sub-millimeter images were obtained through the abdomen, pelvis, and l ower extremities after administration of contrast. 3-D reconstructed images and maximum intensity pr ojection images were obtained of the abdomen, pelvis, and lower extremities. CT Contrast: Contrast used:90cc mL of Isovue 370 with IV Contrast, Oral contrast used: None FINDINGS: CTA left lower extremity: Trimalleolar fracture multiple fracture fragments. The medial malleolus is mildly displaced 1 to 2 mm . The posterior tibial plafond and is displaced 3 mm. The distal metadiaphysis region of the fibula d emonstrates multiple fracture fragments. The anterior tibial artery is in close approximation to thes e fracture fragments (series 401 image 458. Both anterior and posterior tibial arteries are intact an d cross the ankle. There is soft tissue swelling around the ankle. Visualized pelvis demonstrates no evidence for acute intra-abdominal process. 1 disc degeneration of the lower spine. Mild degeneration changes of the left hip with osteophyte formation. The knee is int act without evidence for fracture IMPRESSION 1. No evidence of vascular occlusion. 2. The anterior tibial artery is in close approximation to the distal fibular fracture fragment. The anterior posterior tibial arteries are patent and cross the ankle.
[2022-09-17] MEDS ORDERED: ACET/COD 300 MG/30 MG STARTER PACK 6 TAB BTL PO STA (20:10)
[2022-09-17] MEDS ORDERED: ONDANSETRON 4 MG ODT STARTER PACK 2 TAB BTL PO STA (20:25)
[2022-09-17 20:52] VITALS: BP 159/69; PULSE 96; RESP 18
== END 2022-09-17 20:52 | disposition home or self-care (01) ==
LOC: EC 16:03
DX: S82.892A Other fracture of left lower leg, initial encounter for closed fracture (principal); S82.852A Displaced trimalleolar fracture of left lower leg, initial encounter for closed fracture; I10 Essential (primary) hypertension; K21.9 Gastro-esophageal reflux disease without esophagitis; G47.30 Sleep apnea, unspecified; M19.90 Unspecified osteoarthritis, unspecified site; Z79.899 Other long term (current) drug therapy; W54.1XXA Struck by dog, initial encounter
CPT/HCPCS: 99284; 96374; 96375; 99152; 73590; 73600; 73706; 27752; J2405; S0119; J2704; Q9967

== ENCOUNTER → 2023-02-24 | Outpatient (CLI) | payer OTHER ==
--- NOTE | 2023-02-25 08:04 | MM ---
Reason for Exam: Screening (asymptomatic). Last screening mammogram was performed 12 month(s) ago. Patient History: Menarche at age 11. First Full-Term at age 31. Late child-bearing (after 30). Postmenopausal. Other cancer. Risk Values: Britta 5 year model risk: 2.2%. NCI Lifetime model risk: 9.1%. Prior Study Comparison: 05/04/2019 Bilateral Screening Mammogram, [facility]. 02/01/2021 Bilateral Screening Mammogram, [facility]. 02/21/2022 Bilateral MG screening mammo w CAD, [facility]. Tissue Density: The breast tissue is heterogeneously dense. This may lower the sensitivity of mammography. Findings: Analyzed By CAD. There is no suspicious group of microcalcifications or new suspicious mass in either breast. Overall Assessment: Negative, BI-RAD 1 Management: Screening Mammogram of both breasts in 1 year. . Patient should continue monthly self-breast exams. A clinical breast exam by your physician is recommended on an annual basis. This exam should not preclude additional follow-up of suspicious palpable abnormalities. Note on Britta scores and lifetime risk: 1. A Britta score greater than 3% is considered moderate risk. If this is the case, consider specialist referral to assess eligibility for a risk reducing agent. 2. If overall lifetime risk for the development of breast cancer is 20% or higher, the patient may qualify for future screening with alternating mammogram and breast MRI. Electronically signed and approved by: Kavon Navarro M.D. Radiologis
== END | disposition home or self-care (01) ==
LOC: RADMAMWWP 13:21
PROVIDERS: ATTEND Internal Medicine
DX: Z12.31 Encounter for screening mammogram for malignant neoplasm of breast (principal); Z78.0 Asymptomatic menopausal state
CPT/HCPCS: 77067

== ENCOUNTER → 2024-02-02 | Outpatient (CLI) | payer OTHER ==
[2024-02-02 09:29] VITALS: BP 125/80; PULSE 67; RESP 16; TEMP 98.5
--- NOTE | 2024-02-02 14:55 | P.PAINPG ---
PQRS Measure Charge Sheet Comment: HISTORY OF PRESENT ILLNESS: A 63 yr old female as a referral from Dr Rosales presents today w severe and chronic thoracolumbar pain > 4 yrs secondary to DDD, spondylosis and facet arthropathy without myelopathy for evaluation. Pt states pain level is provoked at 9 /10 in intensity, constant, localized in the R thoracolumbar spine, predominantly axial, achy in character w occasional shooting pain towards the R flank and hip. Pain is provoked by over activity. Pain is alleviated by PT x 6 wks which ended in Jun 2023, physician guided home exercises/ stretches daily since Jun 2023. medications (Tyl Arthritis, Ibu), topical, ice, repositioning and rest . Oswestry axial pain score at 24. PMH: OA, GERD, HTN, CLARA, OP PSH: Vein Stripping SH: Negative x3 FH: Non contributory All: See list Meds: See list REVIEW OF ORGAN SYSTEMS: CONSTITUTIONAL: No fevers or chills. No recent weight loss. NEUROLOGICAL: + numbness and tingling along the distal extremities. No seizure disorders or headaches. MUSCULOSKELETAL: + pain PSYCHIATRIC: Denies current depression or suicidal thoughts. Physical Examinations : Constitutional : Cooperative , not in acute distress . Neurologic : Cranial nerve II to XII intact. No focal neurological deficits. Psychiatric : alert & oriented x 3. Matching mood & appropriate affect. Judgment & insight intact. Musculoskeletal : Cervical Spine Motor strength in the deltoid and biceps: Normal right side. Normal Left side Motor strength biceps and the wrist extensors: Normal right side . Normal left side Motor strength in the triceps muscle: Normal right side. Normal left side Deep tendon reflexes: Normal at the biceps. Normal at Brachioradialis. Normal at triceps Vertebral body tenderness to deep palpation over Cervical facet loading test: positive bilaterally Spurling test: positive bilaterally Neck distraction test: positive bilaterally Roque sign: positive bilaterally Thoracic spine Vertebral body TTP over T12 Basurto test positive R T11-T12 Lumbar spine Motor strength lower extremities ,thigh and legs 5/5 Right side , 5/5 Left side Deep tendon reflexes : Normal Knee Jerk. Normal Ankle Jerk Vertebral body tenderness over L4 Basurto Test positive R> L L4-L5 Lumbar facet Loading Test: positive Right / positive Left Range of motion of the lumbar spine Flexion 30 degrees, extension 10 degrees Straight Leg Raise test: Left/ Right positive at degrees Silvano test: positive right / positive left. Severe tenderness over the Sacroiliac joint on the Right / Left sides Gaenslen test: positive bilaterally Seated flexion test: positive bilaterally. Sacral spine : Severe tenderness over the Sacroiliac joint: right side / left side Range of motion: Flexion of the lumbar spine <60 degrees Range of motion: Extension of the lumbar spine <20 degrees Gaenslen's Test positive Silvano test: positive right side / left side Thigh Thrust Test Sacral Thrust Test Imaging: MRI non contrast of the lumbar spine from 09/18/23 reviewed Assessment/ Plan : Thoracolumbar DDD Recommendation of RODRIGUE T11-12 #1. May need a series of injections for optimal pain relief. Risks, benefits of procedure discussed and patient verbalized understanding.- Admits to anti- coagulant use or medical history of diabetes. Protocol for discontinuation/ continuation of medications bryson procedure discussed. Minimal anesthesia provided, if clinically indicated, consisting of V ersed and Fentanyl. All questions answered. I have spent greater than 30 minutes on patient care today. Dr Acevedo was available by phone for the evaluation of this patient. The time was used to revi ew the medical records including relevant urine studies and Prescription history (MAPs), review of the available imaging, evaluation and examination of the patient, coordination of care with the medical staff and if applicable referring physicians, as well as creation of the medical record PQRS Narrative: Smoking Status Never smoker Home Medications: Ambulatory Orders Fluticasone Nasal [place] [Flonase Nasal [place]] 1 spr EA NOSTRIL DAILY PRN 05/07/19 Turmeric Root Extract [Turmeric] 1,000 mg PO DAILY 05/07/19 Ascorbic Acid [Vitamin C] 1,000 mg PO DAILY 09/17/22 Atorvastatin Calcium [Lipitor] 40 mg PO DAILY 09/17/22 Biotin 5 mg PO DAILY 09/17/22 Chlorthalidone 50 mg PO DAILY 09/17/22 Cranberry W/ Vitamin C 1 tab PO HS 09/17/22 Multivit-Min/Folic Acid/Biotin [Hair, Skin and Nails Softgel] 133.3 mcg PO DAILY 09/17/22 Omeprazole 20 mg PO DAILY 09/17/22 Vitamin D3(Unknown) 1 tab PO HS 09/17/22 lisinopriL [Zestril] 5 mg PO DAILY 09/17/22 Controlled Substance Measures - Controlled Substance Measures Is patient prescribed a controlled substance at discharge?: No
== END ==
LOC: PNWHC3 08:23
PROVIDERS: ATTEND Specialist
DX: M51.35 Other intervertebral disc degeneration, thoracolumbar region (principal); M47.815 Spondylosis without myelopathy or radiculopathy, thoracolumbar region; G89.29 Other chronic pain
CPT/HCPCS: 99211

== ENCOUNTER 2024-02-17 09:24 | Day surgery (SDC) | payer OTHER ==
[~2024-02-17 09:24] MED LIST changes: +LACTATED RINGERS 1,000 ML IV SCH; -SODIUM CHLORIDE 0.9% 500 ML 500 ML in EMPTY BAG 1 BAG IV PRN; -ZOLEDRONIC ACID 5 MG in SODIUM CHLORIDE 0.9% 100 ML IV NR
[2024-02-17 10:47] VITALS: RESP 16; TEMP 97.5
[2024-02-17] MEDS ORDERED: TRIAMCINOLONE ACETONIDE 40 MG/ML 1 ML VIAL ONE (10:49)
[2024-02-17] MEDS ORDERED: ROPIVACAINE 5MG/ML 20ML VIAL ONE (10:49)
--- NOTE | 2024-02-17 10:59 | P.PCN ---
Date of Procedure: 02/17/24 Surgeon: Valerie Nelson Pathology: none sent Condition: stable Disposition: PACU Description of Procedure: Pre and postop diagnosis: Myofascial pain in the thoracolumbar paravertebral musculatureon the right side of the spine Anesthesia :none Physician: Valerie Nelson MD Description of procedure: The patient was seen in preop holding area, consent was obtained, the trigger points were marked on skin. Then the patient was brought into the procedure room and placed in the prone position. Skin was prepped with ChloraPrep and draped in a sterile manner. Then I used 25-gauge 1- 1/2 inch needle to go through the skin and into the trigger points and injected 1 mL of ropivacaine 0.5% mixed with 20 mg of Kenalog in a solution of 4.MLS of ropivacaine 0.5% +20 mg of Kenalog. 1 mL of the solution was injected at each trigger point with a total of 3 trigger points injected in the thoracolumbar paravertebral musculature at T11-T12 level on the right side . . Patient tolerated procedure well. If this injection does not help the patient then the next step would be to try a thoracic epidural steroid injection in the interlaminar approach at the T11-T12 level in the right paramedian approach under fluoroscopic guidance .
[2024-02-17 11:47] VITALS: BP 137/85; PULSE 69
== END 2024-02-17 11:27 | disposition home or self-care (01) ==
LOC: ORPAIN 09:24
PROVIDERS: ATTEND Anesthesiology
DX: M79.18 Myalgia, other site (principal)
CPT/HCPCS: 20553; J3301; J2795; 20552

== ENCOUNTER → 2024-03-09 | Outpatient (CLI) | payer OTHER ==
--- NOTE | 2024-03-11 11:42 | MM ---
Reason for Exam: Screening (asymptomatic). Last screening mammogram was performed 12 month(s) ago. Patient History: Menarche at age 11. First Full-Term at age 31. Late child-bearing (after 30). Postmenopausal. Patient has history of breast feeding. Other cancer. Risk Values: Britta 5 year model risk: 2.2%. NCI Lifetime model risk: 8.9%. Prior Study Comparison: 04/15/2018 Bilateral Screening Mammogram, [facility]. 05/04/2019 Bilateral Screening Mammogram, [facility]. 02/01/2021 Bilateral Screening Mammogram, [facility]. 02/21/2022 Bilateral MG screening mammo w CAD, [facility]. 02/24/2023 Bilateral MG screening mammo w CAD, [facility]. Tissue Density: There are scattered areas of fibroglandular density. Findings: Analyzed By CAD. Right breast: There is no suspicious group of microcalcifications or new suspicious mass. Left breast: Asymmetry posterior nipple line MLO view 3.6 cm from nipple. Overall Assessment: Incomplete: need additional imaging evaluation, BI-RAD 0 Management: Diagnostic Mammogram of the left breast. [facility] will attempt to contact patient to return for supplemental views and ultrasound if indicated. Patient should continue monthly self-breast exams. A clinical breast exam by your physician is recommended on an annual basis. This exam should not preclude additional follow-up of suspicious palpable abnormalities. Note on Britta scores and lifetime risk: 1. A Britta score greater than 3% is considered moderate risk. If this is the case, consider specialist referral to assess eligibility for a risk reducing agent. 2. If overall lifetime risk for the development of breast cancer is 20% or higher, the patient may qualify for future screening with alternating mammogram and breast MRI. Electronically signed and approved by: Duarte Leyva DO
== END | disposition home or self-care (01) ==
LOC: RADMAMWWP 10:46
PROVIDERS: ATTEND Internal Medicine
DX: Z12.31 Encounter for screening mammogram for malignant neoplasm of breast (principal); Z78.0 Asymptomatic menopausal state
CPT/HCPCS: 77067

== ENCOUNTER → 2024-03-10 | Outpatient (CLI) | payer OTHER ==
[2024-03-10 09:04] VITALS: BP 137/76; PULSE 78; RESP 16
--- NOTE | 2024-03-10 14:46 | P.PAINPG ---
PQRS Measure Charge Sheet History and Exam Findings: All other causes of pain ruled out Comment: HISTORY OF PRESENT ILLNESS: A 63 yr old female presents today w severe and chronic thoracolumbar pain > 4 yrs secondary to DDD, spondylosis and facet arthropathy without myelopathy for evaluation s/p R TPIs T10-L4 #1. Pt states she experienced 50 % pain relief x 4 days s/p procedure. Pt states pain level is provoked at 9 /10 in intensity, constant, localized in the R thoracolumbar spine, predominantly axial, achy in character w occasional shooting pain towards the R flank and hip. Pain is provoked by over activity. Pain is alleviated by PT x 6 wks which ended in Jun 2023, physician guided home exercises/ stretches daily since Jun 2023. medications, topical, ice, repositioning and rest . Oswestry axial pain score at 24. Interventional procedures include R TPIs T8-L4 x1 Medications include Tyl Arthritis, Ibu REVIEW OF ORGAN SYSTEMS: CONSTITUTIONAL: No fevers or chills. No recent weight loss. NEUROLOGICAL: + numbness and tingling along the distal extremities. No seizure disorders or headaches. MUSCULOSKELETAL: + pain PSYCHIATRIC: Denies current depression or suicidal thoughts. Physical Examinations : Constitutional : Cooperative , not in acute distress . Neurologic : Cranial nerve II to XII intact. No focal neurological deficits. Psychiatric : alert & oriented x 3. Matching mood & appropriate affect. Judgment & insight intact. Musculoskeletal : Cervical Spine Motor strength in the deltoid and biceps: Normal right side. Normal Left side Motor strength biceps and the wrist extensors: Normal right side . Normal left side Motor strength in the triceps muscle: Normal right side. Normal left side Deep tendon reflexes: Normal at the biceps. Normal at Brachioradialis. Normal at triceps Vertebral body tenderness to deep palpation over Cervical facet loading test: positive bilaterally Spurling test: positive bilaterally Neck distraction test: positive bilaterally Roque sign: positive bilaterally Thoracic spine Vertebral body TTP over T12 Basurto test positive R T11-T12 Lumbar spine Motor strength lower extremities ,thigh and legs 5/5 Right side , 5/5 Left side Deep tendon reflexes : Normal Knee Jerk. Normal Ankle Jerk Vertebral body tenderness over L4 Basurto Test positive R> L L4-L5 Lumbar facet Loading Test: positive Right / positive Left Range of motion of the lumbar spine Flexion 30 degrees, extension 10 degrees Straight Leg Raise test: Left/ Right positive at degrees Silvano test: positive right / positive left. Severe tenderness over the Sacroiliac joint on the Right / Left sides Gaenslen test: positive bilaterally Seated flexion test: positive bilaterally. Sacral spine : Severe tenderness over the Sacroiliac joint: right side / left side Range of motion: Flexion of the lumbar spine <60 degrees Range of motion: Extension of the lumbar spine <20 degrees Gaenslen's Test positive Silvano test: positive right side / left side Thigh Thrust Test Sacral Thrust Test Imaging: MRI non contrast of the lumbar spine from 09/18/23 reviewed Assessment/ Plan : Thoracolumbar DDD Recommendation of R paramedian RODRIGUE T11-T12 #1. May need a series of injections for optimal pain relief. Risks, benefits of procedure discussed and patient verbalized understanding.- Admits to anti- coagulant use or medical history of diabetes. Protocol for discontinuation/ continuation of medications bryson procedure discussed. All questions answered. I have spent greater than 30 minutes on patient care today. Dr Acevedo was available by phone for the evaluation of this patient. The time was used to review the medical records including relevant urine studies and Prescription history (MAPs), review of the available imaging, evaluation and examination of the patient, coordination of care with the medical staff and if applicable referring physicians, as well as creation of the medical record PQRS Narrative: Smoking Status Never smoker Hx Alcohol Use (MH) Yes: WINE Home Medications: Ambulatory Orders Fluticasone Nasal [place] [Flonase Nasal [place]] 1 spr EA NOSTRIL DAILY PRN 05/07/19 Turmeric Root Extract [Turmeric] 1,000 mg PO QAM 05/07/19 Atorvastatin Calcium [Lipitor] 40 mg PO Q48H 09/17/22 Chlorthalidone 50 mg PO QAM 09/17/22 Cranberry W/ Vitamin C 1 tab PO HS 09/17/22 Multivit-Min/Folic Acid/Biotin [Hair, Skin and Nails Softgel] 133.3 mcg PO QAM 09/17/22 Omeprazole 20 mg PO QAM 09/17/22 Vitamin D3(Unknown) 1 tab PO QAM 09/17/22 lisinopriL [Zestril] 5 mg PO QAM 09/17/22 Controlled Substance Measures - Controlled Substance Measures Is patient prescribed a controlled substance at discharge?: No
== END ==
LOC: PNWHC3 08:33
PROVIDERS: ATTEND Specialist
DX: M51.35 Other intervertebral disc degeneration, thoracolumbar region (principal)
CPT/HCPCS: 99211

== ENCOUNTER → 2024-03-12 | Outpatient (CLI) | payer OTHER ==
--- NOTE | 2024-03-12 13:30 | MM ---
Reason for Exam: Follow-up at short interval from prior study. Last screening mammogram was performed less than 1 month ago. Patient History: Menarche at age 11. First Full-Term at age 31. Late child-bearing (after 30). Postmenopausal. Patient has history of breast feeding. Other cancer. Risk Values: Britta 5 year model risk: 2.2%. NCI Lifetime model risk: 8.9%. Prior Study Comparison: 02/21/2022 Bilateral MG screening mammo w CAD, [facility]. 02/24/2023 Bilateral MG screening mammo w CAD, [facility]. 03/09/2024 Bilateral MG screening mammo w CAD, [facility]. Tissue Density: Left: There are scattered areas of fibroglandular density. Findings: Analyzed By CAD. Pattern is stable. Impression no persistent suspicious density is evident. Findings may be summation density. Short-term precautionary follow-up is recommended. No suspicious groups of microcalcifications, spiculated or lobular masses, architectural distortion or other secondary signs of malignancy are mammographically apparent. Overall Assessment: Probably benign, BI-RAD 3 Management: Diagnostic Mammogram of the left breast in 6 months. A negative mammogram report should not preclude additional follow up of suspicious palpable abnormalities. Patient should continue monthly self breast exam. A clinical breast exam by your physician is recommended on an annual basis and results should be correlated with mammographic findings. Note on Britta scores and lifetime risk: 1. A Britta score greater than 3% is considered moderate risk. If this is the case, consider specialist referral to assess eligibility for a risk reducing agent. 2. If overall lifetime risk for the development of breast cancer is 20% or higher, the patient may qualify for future screening with alternating mammogram and breast MRI. Electronically signed and approved by: Nishant Ramon D.O. Radiologis
== END | disposition home or self-care (01) ==
LOC: RADMAMWWP 08:33
PROVIDERS: ATTEND Internal Medicine
DX: R92.8 Other abnormal and inconclusive findings on diagnostic imaging of breast (principal); Z78.0 Asymptomatic menopausal state
CPT/HCPCS: 77061; 77065

== ENCOUNTER → 2024-03-30 | Day surgery (SDC) | payer OTHER ==
[~2024-03-30] MED LIST changes: +IOPAMIDOL M200 10 ML VIAL ONE; +methylPREDNISolone ACETATE 80 MG/ML 1 ML VIAL ONE
[2024-03-30 11:10] VITALS: RESP 16; TEMP 97
--- NOTE | 2024-03-30 12:37 | P.PCN ---
Date of Procedure: 03/30/24 Procedure(s) Performed: PREOPERATIVE DIAGNOSIS: 1-thoracic lumbar Degenerative Disc Diseases POSTOPERATIVE DIAGNOSIS: Same As preop diagnosis. PROCEDURE 1. Thoracic epidural steroid injection under fluoroscopic guidance at the T11- 12 level. (Fluoroscopy imaging was available in radiology department) 2. Thoracic epidurogram. ANESTHESIA: Lidocaine 1% 3 and then only. EBL: Minimal PROCEDURE INDICATION: The patient with mid back pain and radiculitis symptoms unresponsive to conservative treatment. Fluoroscopy was used to optimize visualization of the needle placement and to maximize safety. PROCEDURE DESCRIPTION / TECHNIQUE: The patient was seen and identified in the preoperative area. Risks, benefits, complications including but not limited to infections ,bleeding ,allergic reaction to the medications ,nerve damage and not complete pain releife , and alternatives were discussed with the patient. The patient agreed to proceed with the procedure and signed the consent, and vital signs were stable. Patient was taken to the OR and time out was completed. The patient was placed in the prone position on procedure table and a pillow was placed under the abdomen to reduce lumbar lordosis. The lumbosacral area was prepped and draped in the usual sterile fashion.ere closely monitored during the procedure. Vital signs was monitered during the entire procedure. Using anterior-posterior fluoroscopy, the T11-12 interlaminar space was identified and the skin over this site was marked and then infiltrated with 1% lidocaine subcutaneously. Subsequently, a 20-gauge Tuohy epidural needle was inserted and advanced toward the epidural space using the ``Loss of resistance technique and guided by AP and lateral fluoroscopy. The correct needle position in the epidural space was verified with the injection of 2 mL of the water soluble contrast dye Isovue 200 contrast and observing an excellent epidurogram with the epidural spread of the dye, after negative aspiration for blood and CSF and in the absence of paresthesias. Again after negative aspiration, a 6 ml mixture containing 80 mg of Depo-medrol ( Preservetive Free ), and 2 ml of preservative free Normal Saline, and 2 ml of preservative free lidocaine 1% solution was injected and a washout of epidurogram was seen. Needle was withdrawn intact, skin was cleansed, and bandages were applied. COMPLICATIONS: None DISPOSITION / PLANS: The patient was placed in a supine position and transferred to the recovery area in a stable condition for observation. There was no evidence of lower extremity motor or sensory deficit after the procedure. Patient was discharged from the recovery room after meeting discharge criteria. Home discharge instructions were given to the patient by the staff. The patient was reexamined prior to discharge. The patient will schedule a follow up in the clinic in 2-4 weeks.
[2024-03-30 12:55] VITALS: BP 135/85; PULSE 78
--- NOTE | 2024-03-30 15:54 | FL ---
Fluoroscopy INDICATION: Pain FINDINGS: Fluoroscopy time: 7.3 seconds. Total dose area product (DAP) in uGy*m?, mGy*cm? (or similar): 0.11500 Images obtained: 2. IMPRESSION: 1. Documentation of fluoroscopy.
== END ==
LOC: ORPAIN 10:55
PROVIDERS: ATTEND Specialist
DX: M51.15 Intervertebral disc disorders with radiculopathy, thoracolumbar region (principal)
CPT/HCPCS: 62321; Q9966; J1010

== ENCOUNTER → 2024-04-15 | Outpatient (CLI) | payer OTHER ==
[2024-04-15 08:53] VITALS: BP 123/78; PULSE 80; RESP 18
--- NOTE | 2024-04-15 15:03 | P.PAINPG ---
PQRS Measure Charge Sheet Comment: HISTORY OF PRESENT ILLNESS: A 63 yr old female w at side presents today w severe and chronic thoracolumbar pain > 4 yrs secondary to DDD, spondylosis and facet arthropathy without myelopathy for evaluation s/p RODRIGUE T11-T12 #11. Pt states she experienced 0 % pain relief s/p procedure. Pt states pain level is provoked at 9 /10 in intensity, constant, localized in the R thoracolumbar spine, predominantly axial, achy in character w occasional shooting pain towards the R flank and hip. Pain is provoked by over activity. Pain is alleviated by PT x 6 wks which ended in Jun 2023, physician guided home exercises/ stretches daily since Jun 2023. medications, topical, ice, repositioning and rest . Oswestry axial pain score at 25. Interventional procedures include R TPIs T8-L4 x1, RODRIGUE T11-T12 x1 Medications include Tyl Arthritis, Ibu REVIEW OF ORGAN SYSTEMS: CONSTITUTIONAL: No fevers or chills. No recent weight loss. NEUROLOGICAL: + numbness and tingling along the distal extremities. No seizure disorders or headaches. MUSCULOSKELETAL: + pain PSYCHIATRIC: Denies current depression or suicidal thoughts. Physical Examinations : Constitutional : Cooperative , not in acute distress . Neurologic : Cranial nerve II to XII intact. No focal neurological deficits. Psychiatric : alert & oriented x 3. Matching mood & appropriate affect. Judgment & insight intact. Musculoskeletal : Cervical Spine Motor strength in the deltoid and biceps: Normal right side. Normal Left side Motor strength biceps and the wrist extensors: Normal right side . Normal left side Motor strength in the triceps muscle: Normal right side. Normal left side Deep tendon reflexes: Normal at the biceps. Normal at Brachioradialis. Normal at triceps Vertebral body tenderness to deep palpation over Cervical facet loading test: positive bilaterally Spurling test: positive bilaterally Neck distraction test: positive bilaterally Roque sign: positive bilaterally Thoracic spine Vertebral body TTP over T12 Basurto test positive R T11-T12 Lumbar spine Motor strength lower extremities ,thigh and legs 5/5 Right side , 5/5 Left side Deep tendon reflexes : Normal Knee Jerk. Normal Ankle Jerk Vertebral body tenderness over L4 Basurto Test positive R> L L4-L5 Lumbar facet Loading Test: positive Right / positive Left Range of motion of the lumbar spine Flexion 30 degrees, extension 10 degrees Straight Leg Raise test: Left/ Right positive at degrees Silvano test: positive right / positive left. Severe tenderness over the Sacroiliac joint on the Right / Left sides Gaenslen test: positive bilaterally Seated flexion test: positive bilaterally. Sacral spine : Severe tenderness over the Sacroiliac joint: right side / left side Range of motion: Flexion of the lumbar spine <60 degrees Range of motion: Extension of the lumbar spine <20 degrees Gaenslen's Test positive Silvano test: positive right side / left side Thigh Thrust Test Sacral Thrust Test Imaging: MRI non contrast of the lumbar spine from 09/18/23 reviewed Assessment/ Plan : Thoracolumbar DDD Recommendation of PT x 6 wks w focus on thoracic traction/ decompression M54.14 and medication management. Tylenol #3 #60 w 1 RF. Use, side effects, adverse reactions, safe storage discussed. Opiate/ narcotic agreement signed 04/15/24. All questions answered. I have spent greater than 30 minutes on patient care today. Dr Acevedo was available by phone for the evaluation of this patient. The time was used to review the medical records including relevant urine studies and Prescription history (MAPs), review of the available imaging, evaluation and examination of the patient, coordination of care with the medical staff and if applicable referring physicians, as well as creation of the medical record - Pain Location Right Upper Back Non-Pharmacological Interventions: Heat, Ice, Physical Therapy Pharmacological Interventions: Epidural, PRN Medication, Topical Medication PQRS Narrative: Smoking Status Never smoker Hx Alcohol Use (MH) Yes: WINE Home Medications: Ambulatory Orders Fluticasone Nasal Gray [Flonase Nasal Gray] 1 spr EA NOSTRIL DAILY PRN 05/07/19 Atorvastatin Calcium [Lipitor] 20 mg PO DAILY 09/17/22 Chlorthalidone 50 mg PO QAM 09/17/22 Cranberry W/ Vitamin C 1 tab PO HS 09/17/22 Multivit-Min/Folic Acid/Biotin [Hair, Skin and Nails Softgel] 133.3 mcg PO QAM 09/17/22 Omeprazole 20 mg PO QAM 09/17/22 Vitamin D3(Unknown) 1 tab PO QAM 09/17/22 lisinopriL [Zestril] 5 mg PO QAM 09/17/22 Calcium Citrate 200 mg PO DAILY 03/29/24 Controlled Substance Measures - Controlled Substance Measures Is patient prescribed a controlled substance at discharge?: Yes When asked, does pt state using other controlled substances?: No If prescribed controlled substance>3 days was MAPS reviewed?: Yes If Rx opioid, was Start Talking consent form obtained?: Yes Was information provided regarding opioid addiction?: Yes
== END ==
LOC: PNWHC3 08:28
PROVIDERS: ATTEND Specialist
DX: M51.34 Other intervertebral disc degeneration, thoracic region (principal)
CPT/HCPCS: 99211

== ENCOUNTER → 2024-09-17 | Outpatient (CLI) | payer MEDICARE, OTHER ==
--- NOTE | 2024-09-17 13:35 | MM ---
Reason for Exam: Follow-up at short interval from prior study. Last screening mammogram was performed 6 month(s) ago. Patient History: Menarche at age 11. First Full-Term at age 31. Late child-bearing (after 30). Postmenopausal. Patient has history of breast feeding. Other cancer. Risk Values: Britta 5 year model risk: 2.3%. NCI Lifetime model risk: 8.6%. Prior Study Comparison: 02/24/2023 Bilateral MG screening mammo w CAD, [facility]. 03/09/2024 Bilateral MG screening mammo w CAD, [facility]. 03/12/2024 Left MG 3D work up w/cad LT, [facility]. Tissue Density: Left: There are scattered areas of fibroglandular density. Findings: Analyzed By CAD. The previous upper quadrant asymmetric density has not persisted. Findings compatible with superimposition shadow. No significant change from prior exams. Overall Assessment: Benign, BI-RAD 2 Management: Screening Mammogram of both breasts in 6 months. Results were given to the patient verbally at the time of exam. Patient should continue monthly self-breast exams. A clinical breast exam by your physician is recommended on an annual basis. This exam should not preclude additional follow-up of suspicious palpable abnormalities. Note on Britta scores and lifetime risk: 1. A Britta score greater than 3% is considered moderate risk. If this is the case, consider specialist referral to assess eligibility for a risk reducing agent. 2. If overall lifetime risk for the development of breast cancer is 20% or higher, the patient may qualify for future screening with alternating mammogram and breast MRI. [facility], , 09/17/2024 1:32 PM. Electronically signed and approved by: Issa Castro M.D. Radiologist
== END | disposition home or self-care (01) ==
LOC: RADMAMWWP 13:11
PROVIDERS: ATTEND Internal Medicine
DX: R92.8 Other abnormal and inconclusive findings on diagnostic imaging of breast (principal); R92.323 Mammographic fibroglandular density, bilateral breasts; Z78.0 Asymptomatic menopausal state
CPT/HCPCS: 77065; G0279; 77061

== ENCOUNTER → 2024-09-27 | Outpatient (CLI) | payer MEDICARE ==
--- NOTE | 2024-09-28 11:44 | BD ---
EXAMINATION TYPE: Axial Bone Density DATE OF EXAM: 09/27/2024 CLINICAL HISTORY: 64 years old Female. ICD-10 CODE: M81.0 AGE RELATED OSTEO , Additional History: Height: 64 Weight: 147.9 FRAX RISK QUESTIONS: Alcohol (3 or more units per day): no Family History (Parent hip fracture): yes Glucocorticoids (More than 3mos): no (Ex: prednisone, prednisolone, methylprednisolone, dexamethasone, and hydrocortisone). History of Fracture in Adulthood: yes Secondary Osteoporosis: 1. Type 1 Diabetes: no 2. Hyperthyroidism: no 3. Menopause before 45: no 4. Malnutrition: no 5. Chronic liver disease: no Rheumatoid Arthritis: no Current Tobacco Use: no RISK FACTORS HISTORY OF: Surgery to Spine/Hip(right/left)/Wrist (right/left): no MEDICATIONS: Osteoporosis Medications: reclast How Long: before last bone density EXAM MEASUREMENTS: Bone mineral densitometry was performed using the [employer]. Bone mineral density as measured about the Lumbar spine is: ----- L1-L4(G/cm2): 0.851 T Score Values are as follows: ----- L1: -2.5 ----- L2: -2.5 ----- L3: -3.0 ----- L4: -3.0 ----- L1-L4: -2.7 Z Score Values are as follows: ----- L1: -1.0 ----- L2: -1.0 ----- L3: -1.5 ----- L4: -1.5 ----- L1-L4: -1.2 Bone mineral density has: increased 0.5 % since study of: 08.13.2022 Bone mineral density about the R hip (g/cm2): 0.838 Bone mineral density about the L hip (g/cm2): 0.855 T Score values are as follows: -----R Neck: -1.4 -----L Neck: -1.2 -----R Total: -1.3 -----L Total: -1.2 Z Score values are as follows: -----R Neck: 0.0 -----L Neck: 0.2 -----R Total: -0.2 -----L Total: -0.1 Bone mineral density has: decreased-3.2 % since study of: 08.13.2022 FRAX%s: The graph provided illustrates a 27.0% chance for a major osteoporotic fx and a 1.5% chance f or the hips probability for fx in 10 years time. IMPRESSION: Osteoporosis (T Score less than -2.5). There is increased fracture risk and therapy is usually indicated based on age. Re-Screen 1-2 years. NOTE: T-SCORE=SD OF THE YOUNG ADULT MEAN. [facility], , 09/28/2024 11:42 AM
== END | disposition home or self-care (01) ==
LOC: RADBDWWP 12:47
PROVIDERS: ATTEND Internal Medicine
DX: M81.0 Age-related osteoporosis without current pathological fracture (principal)
CPT/HCPCS: 77080

== ENCOUNTER → 2024-11-17 | Day surgery (SDC) | payer MEDICARE ==
[2024-11-17 10:56] VITALS: BP 121/79; RESP 18
[2024-11-17] MEDS: GLUCAGON 1 MG/ML VIAL IM STA (11:01)
[2024-11-17 11:27] VITALS: PULSE 78
--- NOTE | 2024-11-18 11:56 | MR ---
EXAMINATION TYPE: MR Enterography DATE OF EXAM: 11/17/2024 1:50 PM COMPARISON: None. CLINICAL INDICATION: Female, 64 years old with history of D50.9 IRON DEFICIENCY ANEMIA, UNSPECIFIED; [facility], Iron deficiency TECHNIQUE: Standard multiplanar, multisequence imaging of the abdomen is performed without and with I V contrast, patient is injected with 7 mL intravenous Gadobutrol gadolinium contrast. Oral Glucagon was given as per enterography protocol. Oral Contrast: 1500 FINDINGS: LOWER CHEST: No significant findings. ABDOMEN Bowel: The small bowel distention is inadequate proximally. No definite evidence to suggest abnormal bowel wall thickening involving a small bowel or large bowel. No evidence of bowel obstruction. No evidence for mucosal hyperenhancement, stricture or fistulous tract formation. No mass visualized. Peritoneum: No evidence of pneumoperitoneum, free fluid, or adenopathy. Liver: Unremarkable. Gallbladder and Bile ducts: Unremarkable. Pancreas: Unremarkable. Spleen: Unremarkable. Adrenal glands: Unremarkable. Kidneys: Unremarkable. Bladder: Unremarkable. Reproductive: Unremarkable. Lymph Nodes: Vasculature: Unremarkable. No aortic aneurysm. Musculoskeletal: The osseous structures appear intact. Abdominal wall: Unremarkable. Reproductive: Endometrium appears within normal limits. IMPRESSION: No evidence for mass or hemorrhage. No evidence for active bowel disease. [facility], , 11/18/2024 11:53 AM
== END ==
LOC: RADMRIMAIN 09:39
PROVIDERS: ATTEND Internal Medicine
DX: D50.9 Iron deficiency anemia, unspecified (principal)
CPT/HCPCS: 96372; 72197; 74183; J1610; A9585

== ENCOUNTER → 2025-03-28 | Outpatient (CLI) | payer MEDICARE ==
--- NOTE | 2025-03-28 10:38 | MM ---
Reason for Exam: Screening (asymptomatic). Last mammogram was performed 1 year(s) and 1 month(s) ago. Patient History: Menarche at age 11. First Full-Term at age 31. Late child-bearing (after 30). Postmenopausal. Patient has history of breast feeding. Other cancer. Risk Values: Britta 5 year model risk: 2.3%. NCI Lifetime model risk: 8.6%. Prior Study Comparison: 03/09/2024 Bilateral MG screening mammo w CAD, [facility]. 03/12/2024 Left MG 3D work up w/cad LT, [facility]. 09/17/2024 Left MG 3D diag mammo w/cad LT, [facility]. Tissue Density: There are scattered areas of fibroglandular density. Analyzed By CAD. Overall Assessment: Benign, BI-RAD 2 Management: Screening Mammogram of both breasts in 1 year. Electronically signed and approved by: Hector Michele M.D.
== END | disposition home or self-care (01) ==
LOC: RADMAMWWP 09:49
PROVIDERS: ATTEND Internal Medicine
DX: Z12.31 Encounter for screening mammogram for malignant neoplasm of breast (principal); R92.323 Mammographic fibroglandular density, bilateral breasts; Z78.0 Asymptomatic menopausal state
CPT/HCPCS: 77063; 77067